=== PATIENT | female | born 1990 ===

== ENCOUNTER 2019-02-23 17:37 | Emergency (ER) | payer MEDICAID ==
--- OUTSIDE RECORDS SUMMARY | 2019-02-23 17:46 | XMS REPORT | Continuity of Care Document ---
:1990 External Reference #:[id number] Author Name Hair Hernández M.D. 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 Unavailable Problems Description No Information Available Social History Type Date Description Comments Sex Unknown Tobacco Use Start: Unknown Never Smoked Cigarettes Tobacco Use Start: Unknown Never Smoked Cigars Tobacco Use Start: Unknown Never Smoked A Pipe Smoking Status Reviewed: 02/10/19 Never Smoked A Pipe Smokeless Tobacco Never Used Smokeless Tobacco ETOH Use Occasionally consumes alcohol Tobacco Use Start: Unknown Patient has never smoked Allergies, Adverse Reactions, Alerts Description No Known Drug Allergies Medications Active Medications SIG Qnty Indications Ordering Provider Date Breo Ellipta once daily Unknown 200-25mcg/Inh Aerosol Multivitamin Adult 1 by mouth every Unknown Tablets day Zyrtec Allergy take one tablet Unknown 10mg by mouth daily Capsules Immunizations Description No Information Available Vital Signs Date Vital Result Comment 02/10/2019 10:21am Height 67 inches 5'7" Weight 175.38 lb Heart Rate 85 /min BP Systolic Sitting 108 mmHg BP Diastolic Sitting 68 mmHg Respiratory Rate 12 /min Body Temperature 98.3 F Pain Level 0 O2 % BldC Oximetry 98 % BMI (Body Mass Index) 27.5 kg/m2 Results Description No Information Available Procedures Description No Information Available Medical Devices Description No Information Available Encounters Description No Information Available Assessments Description No Information Available Plan of Treatment Future Appointment(s):03/10/2019 3:30 pm - Dashawn Bryan MD at [facility] [place] Functional Status Description No Information Available Mental Status Description No Information Available Referrals Description No Information Available
[2019-02-23 17:56] VITALS: BP 118/85
--- NOTE | 2019-02-23 17:57 | UC ---
Throat Pain/Nasal Rasheed HPI - HPI Summary HPI Summary: Patient is a 29yo female presenting with sore throat, PND, and productive cough x2 days. Patient states cough is mild and mostly in the morning. Denies ear pain and nasal congestion. Denies SOB and wheezing. Denies n/v. Denies fever, chills, myalgia. Patient states concern for strep throat since she was exposed to it last week. - History of Current Complaint Stated Complaint: SORE THROAT Hx Obtained From: Patient Hx Last Menstrual Period: 02/18/19 Onset/Duration: Gradual Onset, Lasting Days Severity: Moderate Pain Intensity: 4 Pain Scale Used: 0-10 Numeric - Allergies/Home Medications Allergies/Adverse Reactions: Allergies Allergy/AdvReac Type Severity Reaction Status Date / Time No Known Allergies Allergy Verified 02/23/19 17:52 Home Medications: Home Medications Albuterol Sulfate [Ventolin Hfa] 2 puff INH Q4HR PRN 02/23/19 [History Confirmed 02/23/19] Cetirizine HCl [Zyrtec] 1 tab PO DAILY 02/23/19 [History Confirmed 02/23/19] Dm/PE/Acetaminophen/Doxylamine [Vicks Dayquil/Nyquil Cold] 1 mis PO ONCE PRN [History Confirmed 02/23/19] Fluticasone/Vilanterol [Breo Ellipta 200-25 Mcg INH] 1 puff INH DAILY 02/23/19 [ History Confirmed 02/23/19] Mometasone Furoate [Nasonex] 1 spray INH DAILY 02/23/19 [History Confirmed 02/23] PMH/Surg Hx/FS Hx/Imm Hx Previously Healthy: Yes - Surgical History Surgical History: Yes Surgery Procedure, Year, and Place: right eye lazy eye surgery. keloid removal - Family History Known Family History: Positive: Non-Contributory - Social History Alcohol Use: Occasionally Substance Use Type: None Smoking Status (MU): Never Smoked Tobacco Review of Systems All Other Systems Reviewed And Are Negative: Yes Constitutional: Positive: Negative. Negative: Fever, Chills, Fatigue ENT: Positive: Sore Throat, Nasal Discharge - PND. Negative: Ear Ache, Sinus Congestion, Sinus Pain/Tenderness Respiratory: Positive: Cough - productive of dark brown sputum in the morning. Negative: Shortness Of Breath Cardiovascular: Positive: Negative Gastrointestinal: Positive: Negative. Negative: Vomiting, Nausea Musculoskeletal: Positive: Negative Neurological: Positive: Negative Physical Exam Triage Information Reviewed: Yes Appearance: Well-Appearing, No Pain Distress, Well-Nourished Vital Signs: Initial Vital Signs Temp 97.7 F 02/23/19 17:48 Pulse 91 02/23/19 17:48 Resp 18 02/23/19 17:48 BP 118/85 02/23/19 17:48 Pulse Ox 96 02/23/19 17:48 Lab Results 02/23/19 Range/Units 18:01 Group A Strep Rapid Negative (Negative) Vital Signs Reviewed: Yes Eyes: Positive: Conjunctiva Clear ENT: Positive: Hearing grossly normal, Pharyngeal erythema, Nasal drainage - PND , TMs normal, Uvula midline. Negative: Nasal congestion, Tonsillar swelling, Tonsillar exudate, Trismus, Muffled voice, Hoarse voice, Sinus tenderness Neck exam: Normal Neck: Positive: Supple, Nontender, No Lymphadenopathy Respiratory Exam: Normal Respiratory: Positive: Lungs clear, Normal breath sounds, No respiratory distress. Negative: Crackles, Rhonchi, Stridor, Wheezing Cardiovascular Exam: Normal Cardiovascular: Positive: RRR Neurological: Positive: Alert Psychological: Positive: Age Appropriate Behavior Skin Exam: Normal Throat Pain/Nasal Course/Dx - Course Course Of Treatment: Negative rapid strep. Discussed viral URI with patient and instructed to continue with symptomatic treatment. Instructed patient to follow up with pcp if symptoms persist. Patient voiced understanding and agreed with treatment plan. - Differential Dx/Diagnosis Provider Diagnosis: Pharyngitis, Viral URI with cough Discharge ED - Sign-Out/Discharge Documenting (check all that apply): Patient Departure All imaging exams completed and their final reports reviewed: No Studies - Discharge Plan Condition: Stable Disposition: HOME Patient Education Materials: Upper Respiratory Infection (ED) Referrals: Care [facility] [Outside] - If Needed [facility] REFERRAL [Outside] - If Needed Additional Instructions: As discussed, your symptoms are most likely caused by a virus and should resolve without treatment. Throat lozenges, throat sprays and tea with honey may help relieve sore throat. You may use nasal saline spray or Flonase for symptomatic relief. You may take ibuprofen or tylenol as directed for pain relief. Get plenty of rest and fluids. Follow up with your primary care doctor or one of the referrals listed below if your symptoms worsen or do not resolve within 7 days. - Billing Disposition and Condition Condition: STABLE Disposition: Home
== END 2019-02-23 18:19 | disposition home or self-care (01) ==
LOC: UCEAST 17:37
DX: J02.9 Acute pharyngitis, unspecified (principal); J06.9 Acute upper respiratory infection, unspecified; R05 Cough
CPT/HCPCS: 87651; 99201; G0463

== ENCOUNTER 2019-04-01 09:50 | Day surgery (SDC) | payer MEDICAID, OTHER ==
[~2019-04-01 09:50] MED LIST: Buffered Lidocaine 1% SYRIN* 1 ML/SYRINGE INTRADERM ONE; Famotidine IV* 10 MG/ML 2 ML (20 mg) IV ONE; Lactated Ringers 1000 ML Bag* 1,000 ML IV SCH
[2019-04-01] MEDS ORDERED: Famotidine IV* 10 MG/ML 2 ML (20 mg) ONE (10:11)
[2019-04-01] MEDS ORDERED: Ondansetron INJ* 2 MG/ML VIAL ONE (12:26)
[2019-04-01] MEDS ORDERED: Midazolam* 1 MG/ML 5 ML VIAL (5 MG) ONE (12:26)
[2019-04-01] MEDS ORDERED: Lidocaine 2% PF * 5 ML VIAL ONE (12:26)
[2019-04-01] MEDS ORDERED: fentaNYL* 50 MCG/ML 2 ML VIAL (100 MCG VIAL) ONE (12:26)
[2019-04-01] MEDS ORDERED: Dexamethasone IV* 4 MG/ML 1 ML (4 MG) ONE (12:26)
[2019-04-01] MEDS ORDERED: Propofol* 10 MG/ML 20 ML BTL ONE (12:26)
[2019-04-01] MEDS ORDERED: Methylene Blue 0.5 %* 50 MG/10 ML AMP IV ONE (13:04)
[2019-04-01] MEDS ORDERED: Lidocaine 2% w/ EPI 1:200,000* 20 ML SDV VIAL ONE (13:04)
[2019-04-01] MEDS ORDERED: EPHEDrine (Pressors)* 50 MG/ML VIAL ONE (13:31)
[2019-04-01] MEDS ORDERED: Naloxone* 0.4 MG/ML 1 ML VIAL IV PRN (13:45)
[2019-04-01] MEDS ORDERED: Acetaminophen IV 1GM/100ML * 1,000 MG/100 ML VIAL IVPB ONE (13:45)
[2019-04-01] MEDS ORDERED: Ondansetron INJ* 2 MG/ML VIAL IV PRN (13:45)
[2019-04-01] MEDS ORDERED: fentaNYL* 50 MCG/ML 2 ML VIAL (100 MCG VIAL) IV PRN (13:45)
[2019-04-01] MEDS ORDERED: Bacitracin OINTMENT* 0.5% 0.5 oz TUBE ONE (14:06)
[2019-04-01 15:10] VITALS: BP 120/74
--- NOTE | 2019-04-01 19:16 | OP ---
DATE OF OPERATION: 04/01/19 - [facility] DATE OF : [birth year] SURGEON: Stanislav Hernández MD PRE-OP DIAGNOSIS: Large keloid, left pinna. POST-OP DIAGNOSIS: Large keloid, left pinna. OPERATIVE PROCEDURE: Excision of left keloid and then rotational skin flap for closure. BRIEF HISTORY: This 29-year-old female with large keloid of the left ear, fairly disfiguring and painful. Elected to proceed with surgical excision. DESCRIPTION OF PROCEDURE: The patient was taken to the operating room, patient intubated with an LMA. The ear was prepped and draped in the usual fashion. 2 % lidocaine with epinephrine was then infiltrated into skin around the keloid. A small incision was made over the keloid and the skin was elevated. Excision of the keloid was carried out trying to reform the pinna as best as possible. Once the keloid mass was removed, the skin was advanced to close the defect over the antihelical fold. Once this was done, the wound was closed in a single layer using 6-0 nylon. A mastoid dressing was applied. The patient was awakened and sent to recovery room in stable condition. Instrument and sponge count correct. Blood loss minimal. [id number]/[facility] #: [id number] [facility]
== END 2019-04-01 15:14 | disposition home or self-care (01) ==
LOC: OR 09:50
PROVIDERS: ATTEND Otolaryngology
DX: L91.0 Hypertrophic scar (principal); J45.909 Unspecified asthma, uncomplicated
CPT/HCPCS: 81025; 88305; A9270-GY; J1100; J2250; J2405; J2704; J3010